=== PATIENT | male | born 1990 | race African-American/Black ===

== ENCOUNTER 2016-08-17 18:02 | Emergency (ER) | payer OTHER ==
--- NOTE | ~2016-08-17 | CT2 ---
[facility] A Service of [facility] / [facility] RADIOLOGY TEXT RESULTS PATIENT: EJ ARORA LOCATION: [facility] : [birth year] UNIT #: [id number] AGE: [address]: Hilario Simmons MD SEX: M ORDER DR: [id number] [facility]. [place], [place] [address] [id number] MR#: [id number] Acc #: [id number] NAME: EJ ARORA : 1990 SEX: M STUDY DATE/TIME: 08/17/2016 21:41 UNIT: [facility] ROOM: STUDY DESCRIPTION: CT Abd and Pelv W Cont Attending Physician: Hilario Simmons M.D. Ordering Physician: Hilario Simmons M.D. Primary Care Physician: No Primary Care Physician MEDICAL IMAGING REPORT This report is preliminary unless electronic signature is present EXAM CT abdomen and pelvis. INDICATION Diffuse abdominal pain and nausea for [address] of the abdomen and pelvis with IV contrast. Coronal and sagittal reconstructions were obtained. This CT exam was performed with one or more of the following radiation dose reduction techniques: automatic exposure control, adjustment of mA and/or kV according to patient size, and iterative reconstruction. COMPARISON None available. FINDINGS Diffusely diminished attenuation throughout the hepatic parenchyma is indicative of hepatic steatosis. No intrahepatic or extrahepatic biliary dilatation. The gallbladder is not distended. The pancreas, spleen, adrenal glands, and kidneys are within normal limits. No hydronephrosis. The bowel is not dilated. The appendix is normal. PELVIS: No pelvic mass or free pelvic fluid. Bladder is unremarkable. No enlarged pelvic or inguinal lymph nodes. No acute osseous abnormalities. IMPRESSION 1. No acute findings in the abdomen or pelvis. 2. Diffuse hepatic steatosis. [facility] A Service of [facility] / [facility] RADIOLOGY TEXT RESULTS PATIENT: EJ ARORA LOCATION: [facility] : [birth year] UNIT #: [id number] AGE: [address]: Hilario Simmons MD SEX: M ORDER DR: 3. No intrahepatic or extrahepatic biliary dilatation. Gallbladder is not distended. Dictated by... Brian Davis M.D. THIS IS AN ELECTRONICALLY VERIFIED REPORT Brian Davis M.D. at 08/18/2016 2:26 AM CHRISTOPHE/fabiano TD: 08/18/2016 02:11 JOB #: [id number] MEDICAL IMAGING REPORT Page 1 of 1 COPY
[2016-08-17 19:24] LABS: BASOPHIL# 0.1 X10e3 (0-0.3); BASOPHIL% 2.4 % (0-2.5); DIFF IND NO; EOSINOPHIL# 0.2 X10e3 (0-0.7); EOSINOPHIL% 5.6 % (0.0-7.0); HEMATOCRIT 42.2 % (38.0-50.0); HEMOGLOBIN 14.5 gm/dL (13.0-16.0); LYMPHOCYTE% 24.8 % (17.0-45.0); MEAN CELL VOLUME 86.7 FL (83-96); MEAN CORPUSCULAR HEMOGLOBIN 29.8 PG (28-34); MEAN CORPUSCULAR HGB CONC 34.3 g/dL (30-36); MEAN PLATELET VOLUME 10.9 FL (6.5-11.5); MONOCYTE# 0.5 X10e3 (0-1.0); MONOCYTE% 13.1 % (3.0-12.0); NEUTROPHIL# 2.1 X10e3 (1.5-7.1); NEUTROPHIL% 54.1 % (40-75); PLATELET COUNT 155 X10e3 (140-420); RED BLOOD COUNT 4.86 X10e (3.90-5.60); RED CELL DISTRIBUTION WIDTH 13.8 % (11.0-15.5); WHITE BLOOD COUNT 3.9 X10e3 (4.0-10.5)
[2016-08-17 19:32] LABS: ALBUMIN SERUM 4.6 g/dL (3.5-5.0); BILIRUBIN, DIRECT 6.5 mg/dL (0.0-0.2); BILIRUBIN,INDIRECT 6.3 mg/dL (0.0-0.9); BILIRUBIN,TOTAL 12.8 mg/dL (0.2-2.0); CALCIUM SERUM 9.3 mg/dL (8.4-10.2); CREATININE SERUM 0.7 mg/dL (0.6-1.4); GLOM FILT RATE Estimated 152.1 mL/min (>60); POTASSIUM 4.2 mmol/L (3.5-5.1); PROTEIN TOTAL SERUM 7.9 g/dL (6.0-8.3)
[2016-08-17 19:56] LABS: URINE SOURCE CLEAN CATCH
[2016-08-17 20:05] LABS: URINE APPEARANCE CLEAR; URINE BLOOD NEG (NEG); URINE COLOR DK YELLOW; URINE GLUCOSE NEG (NEG); URINE KETONE NEG (NEG); URINE LEUKOCYTE ESTERASE TRACE (NEG); URINE NITRATE POS (NEG); URINE PROTEIN NEG (NEG); URINE SPECIFIC GRAVITY 1.015 (1.003-1.035)
[2016-08-17 20:08] LABS: URINE BACTERIA AUWI NEG (NEGATIVE); URINE SQUAMOUS EPITHELIAL CELL NONE SEEN /[HPF]; UWBCS1 AUWI 0-2 (0-5)
[2016-08-17 20:17] LABS: URINE BILIRUBIN POS (NEG)
[2016-08-17 20:19] LABS: CULTURE INDICATED? YES
[2016-08-17 20:20] LABS: URINE ICTOTEST POS (NEG)
[2016-08-21 07:01] LABS: HA AB IGM (HEPPAN) Nonreactive (()); HB CORE AB IGM (HEPPAN) Nonreactive (Nonreactive); HB S AG (HEPPAN) Nonreactive (Nonreactive); HEP C AB (HEPPAN) Nonreactive (Nonreactive); HEP C AB SIGNAL TO CUTOFF 0.03 ratio (<1.00)
== END 2016-08-17 22:40 | disposition home or self-care (01) ==
LOC: CED 18:02
PROVIDERS: Emergency Medicine
DX: R17 Unspecified jaundice (principal); G43.909 Migraine, unspecified, not intractable, without status migrainosus
CPT/HCPCS: 36415; 74177; 80048; 80074; 80076; 81003; 83690; 85025; 87086; 96374; 96375; 99284; J0780; J1200; J1885; Q9967